=== PATIENT | male | born 1985 | race Caucasian/White ===

== ENCOUNTER → 2018-03-06 | Outpatient (CLI) | payer SELFPAY ==
[~2018-03-06] MED LIST: AMOX-362 PO; AMPH20CA15 PO; CEPH-13 PO; CEPH500T7 PO; CYCL10TA29 PO; DIA5 PO; HYDR-4308 PO; IBUP800T37 PO; LISI-355 PO; LOR5/325 PO; PHEN118S56 PO
== END ==
LOC: LAB 10:58
PROVIDERS: ATTEND Nurse Practitioner Primary Care
DX: I10 Essential (primary) hypertension (principal); R63.5 Abnormal weight gain; E66.9 Obesity, unspecified
CPT/HCPCS: 36415; 82040; 82247; 82310; 82374; 82435; 82465; 82565; 82947; 83718; 84075; 84132; 84155; 84295; 84439; 84443; 84450; 84460; 84478; 84480; 84520

== ENCOUNTER 2018-07-12 00:58 | Day surgery (SDC) | payer OTHER ==
[~2018-07-12] VITALS: Ht 180.3 cm; Wt 136.1 kg
[~2018-07-12 00:58] MED LIST changes: +ATOM40CA7 PO; +CLON-331 PO; +ESCI10TA8 PO; -HYDR-4308 PO; +HYDR-654 PO; +ROSU20TA23 PO
[2018-07-12] MEDS ORDERED: ceFAZolin(*) 1 GM VIAL 3 GM in NS(*) 0.9% 100 ML BAG 100 ML IVPB ONE (07:00)
[2018-07-12] MEDS ORDERED: BACITRACIN OINT 0.9 GM PKT TP ONE ×2 (07:21→10:10)
[2018-07-12] MEDS ORDERED: ROPIVACAINE 0.5% 20 ML VIAL ONE (07:21)
[2018-07-12] MEDS ORDERED: NORMOSOL R SOLN(*) 1000 ML BAG 1,000 ML IV PRN (07:25)
[2018-07-12] MEDS ORDERED: FAMOTIDINE 20 MG TAB PO ONE (07:25)
[2018-07-12] MEDS ORDERED: LIDOCAINE/SOD BICARB 8.4% SYR ID ONE (07:25)
[2018-07-12] MEDS ORDERED: MIDAZOLAM 2 MG/2 ML VIAL IVP PRN (07:25)
[2018-07-12 08:43] VITALS: BP 139/85
[2018-07-12] MEDS ORDERED: DEXAMETHASONE SOD PHOS 10MG/ML ONE (08:59)
[2018-07-12] MEDS ORDERED: ONDANSETRON 4 MG/2 ML VIAL ONE (08:59)
[2018-07-12] MEDS ORDERED: LIDOCAINE MPF 1% 5 ML VIAL ONE (08:59)
[2018-07-12] MEDS ORDERED: MIDAZOLAM 2 MG/2 ML VIAL ONE (08:59)
[2018-07-12] MEDS ORDERED: fentaNYL CITR 100 MCG/2 ML AMP ONE ×3 (08:59→11:22)
[2018-07-12] MEDS ORDERED: PROPOFOL EMUL(*) 10MG/ML 20 ML 20 ML ONE (08:59)
[2018-07-12] MEDS ORDERED: SUGAMMADEX SOD 500 MG/5 ML SDV ONE (10:18)
[2018-07-12] MEDS ORDERED: DOCU-416 PO (10:37)
[2018-07-12] MEDS ORDERED: OXYC-854 PO (10:37)
--- NOTE | 2018-07-12 10:39 | Short(Outpt) Discharge Summary ---
Discharge Summary Reason for Hosp/Final Diag: (1) Umbilical hernia Status: Chronic Hospital Course & Plan: UH repair WITH mesh completed without problems. Departure Discharge to: Home, Self Care Discharge Instructions Home Meds Active Scripts Docusate Sodium (COLACE) 100 Mg Capsule, 1 CAP PO BID, #30 CAP 0 Refills TAKE WITH A FULL GLASS OF WATER Prov:ETHEL SERVIN MD 07/12/18 Oxycodone Hcl/Acet 5/325 Mg (ENDOCET 5-325 TABLET) 1 Each Tablet, 1 TAB PO Q4H PRN for PAIN, #20 TAB 0 Refills Prov:ETHEL SERVIN MD 07/12/18 Lisinopril/Hydrochlorothiazide (LISINOPRIL-HCTZ 20-25 MG TAB) 1 Each Tablet, 1 TAB PO QDAY for 90 Days, #90 TAB 1 Refill Prov:NATANAEL KRAMER MD 07/02/18 Escitalopram Oxalate (ESCITALOPRAM OXALATE) 10 Mg Tablet, 10 MG PO QDAY, #30 TAB 2 Refills Prov:NATANAEL KRAMER MD 07/02/18 Clonazepam (CLONAZEPAM) 0.5 Mg Tablet, 0.5-1 TAB PO QHS PRN for INSOMNIA, #30 TAB 0 Refills Prov:NATANAEL KRAMER MD 07/02/18 Rosuvastatin Calcium (CRESTOR) 20 Mg Tablet, 20 MG PO QDAY, #30 TAB 4 Refills Prov:NATANAEL KRAMER MD 04/12/18 Follow up Referrals: General Surgery - 07/27/18 @ Surgery, General with ETHEL SERVIN MD You have a follow up appointment scheduled with Dr. Servin on 07/27/18, at 10:30am. Diet: Regular Activity: No Heavy Lifting Special Instructions: You may remove the white surgical dressing on 07/14/18, then you can shower. After showering, leave the incision open to air but leave the steristrips in place until they fall off on their own. Do not immerse the incision for 2 weeks. Avoid any activity that involves straining or lifting more than 10 pounds for 6 weeks after surgery. Problem Qualifiers (1) Umbilical hernia: Obstruction and gangrene presence: without obstruction or gangrene Qualified Codes: K42.9 - Umbilical hernia without obstruction or gangrene ETHEL SERVIN MD Jul 12, 2018 10:39
--- NOTE | 2018-07-12 10:45 | Post Operative Progress Note ---
Post Operative Progress Note Date: Jul 12, 2018 Time: 10:40 Surgeon: Anitha Dictation number: [id number] Anesthesia: LMA by Dr. Tee Pre-Op Diagnosis: UH Post-Op Diagnosis: CRUZ Findings: 1cm fascial defect Procedure(s): UH repair WITH mesh Specimen Removed:(May be N/A): Small hernia sac removed (not sent to pathology) Complications: None Fluids: See anesthesia record Estimated Blood Loss: Minimal Date OP Note Dictated: Jul 12, 2018 Time OP Note Dictated: 10:41 ETHEL SERVIN MD Jul 12, 2018 10:45
[2018-07-12] MEDS ORDERED: ACETAMINOPHEN(*)1000 MG/100 ML 100 ML IVPB ONE (11:03)
[2018-07-12 11:46] VITALS: BP 113/80
[2018-07-12 12:00] VITALS: BP 115/76
[2018-07-12 12:17] VITALS: BP 123/87
[2018-07-12 12:18] VITALS: BP 134/93
--- NOTE | 2018-07-12 19:55 | OPERATIVE REPORT 1 ---
EVENT DATE: July 12, 2018 SURGEON: Alvarado Welsh MD ANESTHESIOLOGIST: Anand Tee MD ANESTHESIA: LMA. PREOPERATIVE DIAGNOSIS Umbilical hernia. POSTOPERATIVE DIAGNOSIS Umbilical hernia. PROCEDURE PERFORMED Umbilical hernia repair with mesh. COMPLICATIONS None. CONDITION Stable. BLOOD LOSS Minimal. INDICATIONS This is a 33-year-old obese gentleman who presented to my office with a small bulge at his umbilicus that was causing him discomfort. His exam was consistent with an umbilical hernia, and he was requesting to have it repaired. DESCRIPTION OF PROCEDURE Patient was brought to the operating room and placed supine on the operating table. LMA anesthesia was administered, and his abdomen was prepped and draped in the usual sterile fashion. Timeout was completed, and I injected the infraumbilical skin with 0.5% ropivacaine plain. I made a curvilinear smiley face-type incision in the infraumbilical rim and dissected through the dermis and into the subcutaneous fat. I then used blunt dissection to encircle the umbilical stalk and then raised the umbilicus up off the underlying fascia and hernia. After this was completed, I identified a very small hernia sac coming through about a 1 cm fascial defect. I was able to come across the hernia sac while controlling the cut peritoneal edge with hemostats, and then when the hernia sac was removed, I sewed the peritoneal defect closed with a running 3-0 Vicryl suture. I then placed a 4.3 cm round piece of C-QUR umbilical hernia mesh in the preperitoneal space after creating the space with blunt dissection, and it laid nice and flat. Then, I cut off the tails and oversewed the fascial defect with interrupted 0 Ethibond sutures, incorporating the mesh into the suture line to keep it from migrating. I did irrigate and dry before closing the fascial defect, and then after closing the fascial defect, I tacked the umbilicus down to the fascia with a single 3-0 Vicryl suture. I then closed skin with 4-0 Monocryl running subcuticular suture. Skin was cleaned and dried, and Steri-Strips were applied. Then, I packed the umbilicus with antibiotic- laden 2 x 2 gauze and then covered the umbilicus and the incision with a single sterile surgical dressing. The patient was awakened and LMA removed. He was transported to the recovery room in stable condition having tolerated the procedure without any apparent problems. MTDD
[2018-07-13] MEDS ORDERED: LISI-355 PO (10:49)
== END 2018-07-12 11:45 | disposition home or self-care (01) ==
LOC: OR 00:58
PROVIDERS: ATTEND Surgery
DX: K42.9 Umbilical hernia without obstruction or gangrene (principal)
CPT/HCPCS: 36415; 49585; 94667; C1781; C9399; J0131; J0690; J1100; J2001; J2250; J2405; J2704; J2795; J3010; J7050; 82310; 82374; 82435; 82565; 82947; 84132; 84295; 84520